=== PATIENT | female | born 1965 | race Caucasian/White ===

== ENCOUNTER 2018-06-19 17:08 | Emergency (ER) | payer OTHER ==
[2018-06-19 18:43] VITALS: BP 132/83; PULSE 77; RESP 16; TEMP 98.2; O2SAT 96
[2018-06-19] MEDS ORDERED: APAP/HYDROCODONE 325/5 TAB PO ONE (18:47)
[2018-06-19] MEDS ORDERED: APAP/HYDROCODONE 325/5 TAB ONE (18:52)
[2018-06-19] MEDS ORDERED: DOXYCYCLINE 100 MG TAB ONE (18:56)
[2018-06-19] MEDS ORDERED: DOXYCYCLINE 100 MG TAB PO SCH (19:00)
== END 2018-06-19 19:04 | disposition home or self-care (01) | DRG 156 ==
LOC: ED 17:08
DX: H60.91 Unspecified otitis externa, right ear (principal)
CPT/HCPCS: 99282; 99283; A9270-GY

== ENCOUNTER 2018-07-16 19:15 | Emergency (ER) | payer OTHER ==
[2018-07-16 19:51] VITALS: TEMP 97
[2018-07-16] MEDS ORDERED: MORPHINE SULFATE 10 MG/ML SOL IV ONE (19:56)
[2018-07-16] MEDS ORDERED: MORPHINE SULFATE 10 MG/ML SOL ONE (20:02)
[2018-07-16] MEDS ORDERED: MORPHINE SULFATE 10 MG/ML SOL IM ONE (20:04)
[2018-07-16] MEDS ORDERED: HYDROMORPHONE HCL 2 MG/ML SOL IV ONE (20:22)
[2018-07-16] MEDS ORDERED: HYDROMORPHONE HCL 2 MG/ML SOL IM ONE (20:25)
[2018-07-16] MEDS ORDERED: HYDROMORPHONE 1 MG/ML SYRINGE ONE (20:27)
[2018-07-16] MEDS ORDERED: FENTANYL 100MCG/2ML SOL IV ONE (21:25)
[2018-07-16] MEDS ORDERED: FENTANYL 100MCG/2ML SOL ONE (21:35)
[2018-07-16] MEDS ORDERED: SODIUM CHLORIDE 0.9% FLUSH 10 ML SOL IV PRN (21:36)
[2018-07-16 21:45] VITALS: PULSE 75; RESP 18
[2018-07-16] MEDS ORDERED: LIDOCAINE HCL 2% (VISCOUS) 20 ML SOL ONE (22:16)
[2018-07-16 22:41] VITALS: BP 143/75; O2SAT 95
[2018-07-17] MEDS ORDERED: LIDOCAINE HCL 2% (VISCOUS) 20 ML SOL MT SCH (09:00)
== END 2018-07-16 22:40 | disposition home or self-care (01) | DRG 159 ==
LOC: ED 19:15
DX: K04.7 Periapical abscess without sinus (principal)
CPT/HCPCS: 96372; 96374; 99283; J2270; J3010; A9270-GY; J1170

== ENCOUNTER 2018-09-09 01:48 | Emergency (ER) | payer OTHER ==
[2018-09-09 01:06] VITALS: RESP 20; TEMP 96.1
[~2018-09-09 01:48] MED LIST: SODIUM CHLORIDE 0.9% FLUSH 10 ML SOL IV PRN
[2018-09-09] MEDS ORDERED: MORPHINE SULFATE 10 MG/ML SOL IV ONE (01:52)
[2018-09-09] MEDS ORDERED: MORPHINE SULFATE 10 MG/ML SOL ONE (01:53)
[2018-09-09] MEDS ORDERED: CYCLOBENZAPRINE 10 MG TAB PO ONE (02:34)
[2018-09-09] MEDS ORDERED: CYCLOBENZAPRINE 10 MG TAB ONE (02:36)
[2018-09-09 03:26] VITALS: O2SAT 97
[2018-09-09 03:28] VITALS: BP 130/74; PULSE 65
== END 2018-09-09 03:03 | disposition home or self-care (01) | DRG 556 ==
LOC: ED 01:48
DX: M25.551 Pain in right hip (principal); M25.561 Pain in right knee; V80.010A Animal-rider injured by fall from or being thrown from horse in noncollision accident, initial encounter
CPT/HCPCS: 73502; 73560; 96374; 99283; 99284; J2270; A9270-GY